=== PATIENT | female | born 1965 | race Caucasian/White ===

== ENCOUNTER 2017-09-29 11:21 | Inpatient (IN) | payer OTHER ==
[~2017-09-29] VITALS: Ht 147.3 cm; Wt 61.7 kg
[2017-09-29] MEDS ORDERED: PREMARIN1.25 MG (11:30)
== END 2017-10-20 13:47 | disposition home or self-care (01) | DRG 392 ==
LOC: ER 11:21 → MEDI 19:21
PROC: BW21Y0Z Computerized Tomography (CT Scan) of Abdomen and Pelvis using Other Contrast, Unenhanced and Enhanced (ICD-10-PCS; 2017-09-29)
PROC: BW21Y0Z Computerized Tomography (CT Scan) of Abdomen and Pelvis using Other Contrast, Unenhanced and Enhanced (ICD-10-PCS; 2017-10-05)
PROC: 3E0336Z Introduction of Nutritional Substance into Peripheral Vein, Percutaneous Approach (ICD-10-PCS; 2017-10-05)
PROC: 02HV33Z Insertion of Infusion Device into Superior Vena Cava, Percutaneous Approach (ICD-10-PCS; 2017-10-06)
PROC: 0W9G30Z Drainage of Peritoneal Cavity with Drainage Device, Percutaneous Approach (ICD-10-PCS; principal; 2017-10-07)
PROC: BW21Y0Z Computerized Tomography (CT Scan) of Abdomen and Pelvis using Other Contrast, Unenhanced and Enhanced (ICD-10-PCS; 2017-10-15)
DX: K57.20 Diverticulitis of large intestine with perforation and abscess without bleeding (principal); N39.0 Urinary tract infection, site not specified; Z16.12 Extended spectrum beta lactamase (ESBL) resistance; B96.20 Unspecified Escherichia coli [E. coli] as the cause of diseases classified elsewhere; B95.2 Enterococcus as the cause of diseases classified elsewhere

== ENCOUNTER 2017-11-05 09:00 | Inpatient (IN) | payer OTHER ==
[~2017-11-05] VITALS: Ht 142.2 cm; Wt 58.5 kg
[~2017-11-05 09:00] MED LIST: PREMARIN1.25 MG
[2017-11-05] MEDS ORDERED: ZYRTEC10 M3 PO (13:46)
[2017-11-05] MEDS ORDERED: FLONASE16 GM (13:46)
== END 2017-11-14 20:58 | disposition home or self-care (01) | DRG 330 ==
LOC: O/R 11-10 06:30 → SURH 11-10 06:30 → SURG 11-10 09:00 → SURH 11-10 15:35
PROVIDERS: Colon & Rectal Surgery
PROC: 0TQB4ZZ Repair Bladder, Percutaneous Endoscopic Approach (ICD-10-PCS; 2017-11-10)
PROC: 0DJD8ZZ Inspection of Lower Intestinal Tract, Via Natural or Artificial Opening Endoscopic (ICD-10-PCS; 2017-11-10)
PROC: 0DTE4ZZ Resection of Large Intestine, Percutaneous Endoscopic Approach (ICD-10-PCS; principal; 2017-11-10 10:15)
DX: K57.20 Diverticulitis of large intestine with perforation and abscess without bleeding (principal); N99.72 Accidental puncture and laceration of a genitourinary system organ or structure during other procedure; D50.0 Iron deficiency anemia secondary to blood loss (chronic)

== ENCOUNTER 2019-12-15 13:44 | Emergency (ER) | payer OTHER ==
[~2019-12-15] VITALS: Ht 129.5 cm; Wt 68.0 kg
[~2019-12-15 13:44] MED LIST changes: +FLONASE16 GM; +ZYRTEC10 M3 PO
== END 2019-12-15 19:15 | disposition home or self-care (01) ==
LOC: ER 13:44
DX: K52.9 Noninfective gastroenteritis and colitis, unspecified (principal)